=== PATIENT | male | born 1965 | race Two or more races ===

== ENCOUNTER 2022-04-20 00:16 | Emergency (ER) | payer SELFPAY ==
[~2022-04-20] VITALS: Ht 172.7 cm; Wt 82.0 kg
[~2022-04-20 00:16] MED LIST: HYDR500T13
[2022-04-20 01:03] VITALS: BP 147/94
[2022-04-20 02:19] LABS: Basophils # (auto) 0 10 ^3/uL (0-0.2); Basophils % (auto) 0.4 % (0.0-2.0); Eosinophils # (auto) 0.1 10 ^3/uL (0-0.8); Eosinophils % (auto) 1.1 % (0.0-7.0); Hematocrit 46.1 % (41.0-53.0); Lymphocytes # (auto) 1.7 10 ^3/uL (0.4-5.4); Lymphocytes % (auto) 27.1 % (10.0-50.0); Mean Corpuscular Hemoglobin 32.4 pg (28.0-32.0); Mean Corpuscular Hgb Conc. 34.8 g/dL (32.0-36.0); Mean Corpuscular Volume 93.2 fL (80.0-100.0); Monocytes # (auto) 0.7 10 ^3/uL (0-1.3); Monocytes % (auto) 10.9 % (0.0-12.0); Neutrophils # (auto) 3.9 10 ^3/uL (1.6-8.6); Neutrophils % (auto) 60.5 % (37.0-80.0); Nucleated Red Blood Cells % 0.1 %; Red Blood Cells 4.94 10^6/uL (4.5-5.90); Red Cell Distribution Width 13.3 % (11.8-14.3); White Blood Cell 6.4 10^3/uL (4.4-10.8)
[2022-04-20 02:36] LABS: Albumin 4.2 g/dL (3.4-5.0); Calcium 9.4 mg/dL (8.5-10.1)
[2022-04-20 02:39] LABS: BUN/Creatinine Ratio 19.8
[2022-04-20 02:43] LABS: Bilirubin, Total 0.5 mg/dL (0.2-1.0); Total Protein 7.4 g/dL (6.4-8.2)
[2022-04-20] MEDS ORDERED: MECL1TAB42 PO (03:44)
[2022-04-20] MEDS ORDERED: ONDA-144 PO (03:44)
== END 2022-04-20 03:50 | disposition home or self-care (01) ==
LOC: ER 00:16
DX: R42 Dizziness and giddiness (principal)
CPT/HCPCS: 36415; 70450; 71045; 80053; 84484; 85025

== ENCOUNTER 2024-06-10 11:20 | Emergency (ER) | payer BC, OTHER ==
[~2024-06-10] VITALS: Ht 175.3 cm; Wt 150.0 kg
[~2024-06-10 11:20] MED LIST changes: +MECL1TAB42 PO; +ONDA-144 PO
--- NOTE | 2024-06-10 11:58 | ED.PDOC ---
History of Present Illness HPI Comments 59 y/o M presents with c/o palpitations for the past 2x weeks, today. Patient endorses on unprovoked onset of palpitations, intermittently, for the past 2x weeks that occurs in the afternoons when getting home from work. Patient admits to recent stressors in his life. He reports only Hx of vertigo and hemorrhoids. He denies any chest pain, shortness of breath, or other associated symptoms or modifiers at this time. Chief Complaint: Palpitations Time Seen by MD: 11:35 Primary Care Provider: NONE Reviewed Notes: Nurses Notes, Medications, Allergies Allergies: Coded Allergies: NO KNOWN ALLERGIES (Unverified , 02/15/10) Home Meds Active Scripts Meclizine HCl (Meclizine 25) 25 Mg Tab, 25 MG PO TID for 14 Days, #42 TAB Prov:KELLI LANE 04/20/22 Ondansetron (Zofran) 4 Mg Tab, 1 TAB PO Q6HR PRN, #20 TAB Prov:KELLI LANE 04/20/22 Reported Medications Hydrocodone-Acetaminophen (Acetaminophen/Hydrocodone) 1 Tab Tab 01/09/13 Information Source: Patient Mode of Arrival: Ambulatory Severity: Moderate Timing: Weeks Duration: Intermittent Prehospital treatment: None Past Medical History Past Medical History (Other): morbid obesity, vertigo, hemorroids Surgical History: Denies all surgeries Family History Family History: Unknown Social History Smoker: Non-Smoker Alcohol: Denies ETOH Use Drugs: Denies Drug Use Lives In: Home Cardiovascular: reports: palpitations All Other Systems: Reviewed and Negative (negative unless otherwise stated above or in HPI) Physical Exam General Appearance: Moderate Distress HEENT: Normal ENT Inspection, Pharynx Normal, TMs Normal Neck: Full Range of Motion, Non-Tender, Normal, Normal Inspection Respiratory: Chest Non-Tender, Lungs Clear, No Accessory Muscle Use, No Respiratory Distress, Normal Breath Sounds Cardiovascular: No Edema, No JVD, No Murmur, No Gallop, Normal Peripheral Pulses, Regular Rate/Rhythm Breast Exam: Deferred Gastrointestinal: No Organomegaly, Non Tender, No Pulsatile Mass, Normal Bowel Sounds, Soft Genitalia: Deferred Pelvic: Deferred Rectal: Deferred Extremities: No calf tenderness, Normal capillary refill, Normal inspection, Normal range of motion, Non-tender, No pedal edema Musculoskeletal : Apperance: Normal Neurologic: Alert, information management specialist II-XII nml as Tested, No Motor Deficits, Normal Affect, Normal Mood, No Sensory Deficits Cerebellar Function: Normal Reflexes: Normal Skin: Dry, Normal Color, Warm Peripheral Pulses: 3+ Radial (R), 3+ Radial (L) Lymphatic: No Adenopathy Was a procedure done? Was a procedure done?: No EKG EKG : Pulse Rate (adult): 100 [place]: Normal Cardiac Rhythm: ST Block: None Hypertrophy: None ST: Normal Differential Dx Considerations may include: anxiety, stress-induced, arrhythmia, tachycardia X-Ray, Labs, Meds, VS Vital Signs Date Time Temp Pulse Resp B/P (MAP) Pulse Ox O2 Delivery O2 Flow Rate FiO2 06/10/24 11:58 100 06/10/24 11:26 100 06/10/24 11:23 93.0 97 20 150/93 (112) 95 152/100 (117) Lab Test 06/10/24 11:34 Range/Units White Blood Count 7.4 4.4-10.8 10^3/uL Red Blood Count 5.34 4.5-5.90 10^6/uL Hemoglobin 17.4 13.5-17.5 g/dL Hematocrit 49.6 41.0-53.0 % Mean Corpuscular Volume 92.8 80.0-100.0 fL Mean Corpuscular Hemoglobin 32.6 H 28.0-32.0 pg Mean Corpuscular Hemoglobin Concent 35.1 32.0-36.0 g/dL Red Cell Distribution Width 13.3 11.8-14.3 % Platelet Count 198 140-450 10^3/uL Mean Platelet Volume 7.6 6.9-10.8 fL Neutrophils (%) (Auto) 62.3 37.0-80.0 % Lymphocytes (%) (Auto) 26.6 10.0-50.0 % Monocytes (%) (Auto) 9.9 0.0-12.0 % Eosinophils (%) (Auto) 0.5 0.0-7.0 % Basophils (%) (Auto) 0.7 0.0-2.0 % Neutrophils # (Auto) 4.6 1.6-8.6 10 ^3/uL Lymphocytes # (Auto) 2.0 0.4-5.4 10 ^3/uL Monocytes # (Auto) 0.7 0-1.3 10 ^3/uL Eosinophils # (Auto) 0 0-0.8 10 ^3/uL Basophils # (Auto) 0 0-0.2 10 ^3/uL Nucleated Red Blood Cells 0.4 % Sodium Level 141 136-145 mmol/L Potassium Level 4.1 3.5-5.1 mmol/L Chloride Level 107 98-107 mmol/L Carbon Dioxide Level 28 20-31 mmol/L Anion Gap 6 5-15 Blood Urea Nitrogen 15 9-23 mg/dL Creatinine 1.07 0.700-1.30 mg/dL Glomerular Filtration Rate Calc 79 >90 mL/min BUN/Creatinine Ratio 14.0 10.0-20.0 Serum Glucose 108 H 74-106 mg/dL Calcium Level 10.1 8.7-10.4 mg/dL Troponin I High Sensitivity < 3 L </=54 ng/L Patient alert. Complaining of palpitations. Vitals stable. Answering all questions. EKG reviewed does not show any acute changes. Cardiac marker within normal limits. Possible anxiety related. Blood pressure slightly elevated. Given clonidine. Tachycardia. Has risk factors for coronary artery disease. Echocardiogram. Stress test. Explained to the patient. Time of 1ST Reevaluation: 12:05 Reevaluation 1ST: Unchanged Patient Education/Counseling: Diagnosis, Treatment Family Education/Counseling: No Family Present Departure 1 Departure Time of Disposition: 12:43 Impression: Primary Impression: Hypertensive urgency Additional Impression: Palpitations Disposition: ADMITTED INPATIENT Admit to: Med Surg Condition: Guarded Critical Care Note Critical Care Time?: No Stability Stability form required: No Heart Score Heart Score: Heart Score Response (Comments) Value History Slightly Suspicious 0 EKG Normal 0 Age 45-64 1 Risk Factors 1 or 2 risk factors 1 Troponin Normal limit 0 Total 2 I personally scribed for CRISTÓBAL FALL MD ([email or web address]) on 06/10/24 at 11:58. Electronically submitted by Julio Deshpande ([email or web address]). CRISTÓBAL FALL MD Jun 10, 2024 11:58
[2024-06-10 12:05] LABS: Potassium 4.1 mmol/L (3.5-5.1); Sodium 141 mmol/L (136-145)
[2024-06-10 12:06] LABS: Anion Gap 6 (5-15); Carbon Dioxide 28 mmol/L (20-31)
[2024-06-10 12:07] LABS: Calcium 10.1 mg/dL (8.7-10.4)
[2024-06-10 12:10] LABS: Basophils # (auto) 0 10 ^3/uL (0-0.2); Basophils % (auto) 0.7 % (0.0-2.0); Eosinophils # (auto) 0 10 ^3/uL (0-0.8); Eosinophils % (auto) 0.5 % (0.0-7.0); Hematocrit 49.6 % (41.0-53.0); Hemoglobin 17.4 g/dL (13.5-17.5); Lymphocytes % (auto) 26.6 % (10.0-50.0); Mean Corpuscular Hemoglobin 32.6 pg (28.0-32.0); Mean Corpuscular Hgb Conc. 35.1 g/dL (32.0-36.0); Mean Corpuscular Volume 92.8 fL (80.0-100.0); Monocytes # (auto) 0.7 10 ^3/uL (0-1.3); Monocytes % (auto) 9.9 % (0.0-12.0); Neutrophils # (auto) 4.6 10 ^3/uL (1.6-8.6); Neutrophils % (auto) 62.3 % (37.0-80.0); Nucleated Red Blood Cells % 0.4 %; Platelet Count (auto) 198 10^3/uL (140-450); Red Blood Cells 5.34 10^6/uL (4.5-5.90); Red Cell Distribution Width 13.3 % (11.8-14.3); White Blood Cell 7.4 10^3/uL (4.4-10.8)
[2024-06-10 12:11] LABS: Chloride 107 mmol/L (98-107)
[2024-06-10 12:12] LABS: Blood Urea Nitrogen 15 mg/dL (9-23)
[2024-06-10 12:16] LABS: Glucose 108 mg/dL (74-106)
[2024-06-10] MEDS: LORazepam 2MG/ML-1ML VIAL IV ONE (12:46)
[2024-06-10] MEDS: ASPirin 325 MG TAB PO ONE (12:46)
[2024-06-10 12:48] VITALS: BP 164/98; TEMP 97.9
[2024-06-10 12:49] VITALS: PULSE 101; RESP 20; O2SAT 100
--- NOTE | 2024-06-10 13:04 | DVH ---
CHEST RADIOGRAPH Indication: cough Technique: Single frontal view of the chest was obtained COMPARISON: CHEST PORTABLE on DOS: 04/20/22, CXRP on DOS: 04/20/22 FINDINGS: Lines and Tubes: None Lungs: Mild congestion Pleura: No effusion. No pneumothorax. Cardiomediastinal contours: Unremarkable Bones: Unremarkable IMPRESSION: Mild congestion
--- NOTE | 2024-06-18 09:58 | ECG ---
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
== END 2024-06-10 17:20 | disposition left against medical advice (07) ==
LOC: ER 11:28
DX: I16.0 Hypertensive urgency (principal); R00.2 Palpitations; E66.01 Morbid (severe) obesity due to excess calories; Z87.19 Personal history of other diseases of the digestive system; Z79.899 Other long term (current) drug therapy
CPT/HCPCS: 36415; 71045; 80048; 84484; 85025; 93005; 96374; 99285; J2060